=== PATIENT | female | born 1950 ===

== ENCOUNTER 2023-07-01 08:09 | Day surgery (SDC) | payer MEDICARE, BC ==
[~2023-07-01] VITALS: Ht 162.6 cm; Wt 65.0 kg
[~2023-07-01 08:09] MED LIST: Ondansetron 4 MG/2 ML VIAL IV PRN
[2023-07-01 08:27] VITALS: BP 132/79; PULSE 95; TEMP 98.2
[2023-07-01] MEDS ORDERED: FENTANYL 25 MCG TD (08:41)
[2023-07-01] MEDS ORDERED: CYMBALTA 30MG30 MG PO (08:41)
[2023-07-01] MEDS ORDERED: FOLIC ACID 11 MG/TA1 PO (08:42)
[2023-07-01] MEDS ORDERED: LIPITOR20 MG PO (08:42)
[2023-07-01] MEDS ORDERED: PEPCID40 MG PO (08:43)
[2023-07-01] MEDS ORDERED: NORVASC 5MG5 MG/TAB PO (08:43)
[2023-07-01] MEDS ORDERED: SYNTHROID0.125 MG/T PO (08:43)
[2023-07-01] MEDS ORDERED: NEXIUM 40MG40 MG PO (08:43)
[2023-07-01] MEDS ORDERED: ZYPREXA2.5 MG PO (08:44)
[2023-07-01] MEDS ORDERED: CARAFATE 1GM1 G PO (08:44)
[2023-07-01] MEDS ORDERED: PROBIOTIC BLEN1 EACH PO (08:45)
[2023-07-01] MEDS ORDERED: ASPIRIN 81M81 MG/TA2 PO (08:45)
[2023-07-01] MEDS ORDERED: COMPAZINE 110 MG/TAB PO (08:46)
[2023-07-01] MEDS ORDERED: ZOFRAN8 MG PO (08:46)
[2023-07-01] MEDS ORDERED: LR 1,000 ML IV SCH (08:55)
--- NOTE | 2023-07-01 09:00 | NUR ---
The patient ambulated back to [facility] independently using a steady gait and appeared to tolerate the activity well. Vital signs obtained. Consent signed. Port a catheter accessed with a 1 inch needle with good blood return and LR infusing without difficulty. Assessment completed. Home medications reconcilled. , Víctor, brought back to be at her bedside. Warm blanket provided. Call light is within reach. Denies any further needs at this time.
[2023-07-01] MEDS ORDERED: Midazolam 2 MG/2 ML VIAL ONE (09:29)
[2023-07-01] MEDS ORDERED: Ondansetron 4 MG/2 ML VIAL ONE (09:31)
[2023-07-01 09:55] VITALS: BP 125/78; PULSE 77; TEMP 98.2
[2023-07-01 10:10] VITALS: BP 133/78; PULSE 74
[2023-07-01 10:25] VITALS: BP 136/64; PULSE 78
--- NOTE | 2023-07-01 12:33 | NUR ---
[id number]: PT TO RECOVERY BAY FROM [facility] S/P EGD WITH BX'S A&O, PLACED ON MONITOR, VSS ON RA DENIES COMPLAINT RECEIVED REPORT AND ASSUMED CARE OF PT FROM [facility] CASTRO SPOUSE AT BEDSIDE PROVIDED FOOD/FLUIDS, TOLERATING WELL PT HAS REMAINED A&O, NAD, VSS ON RA, TOLERATING PO, IS WITHOUT SIGNIFICANT COMPLAINT, WITH STEADY GAIT BY THE END OF STAY PORTACATH LOCKED WITH HEPARIN, ACCESS DC'D, BANDAID PLACED - CDI D/C INSTRUCTIONS, FOLLOW UP REVIEWED AND HANDED TO PT. ALL QUESTIONS AND CONCERNS ADDRESSED TO PT SATISFACTION. TAKEN TO EXIT VIA W/C WITH ALL BELONGINGS AND PAPERWORK IN HAND, ASSISTED INTO PASSENGER SEAT OF POV. FAMILY TO DRIVE HOME.
== END 2023-07-01 10:55 | disposition home or self-care (01) ==
LOC: SDCO 08:09
DX: K29.30 Chronic superficial gastritis without bleeding (principal); K83.8 Other specified diseases of biliary tract
CPT/HCPCS: J1644; J2250; J2405; J2704; J7120